=== PATIENT | male | born 1945 | race Caucasian/White ===

== ENCOUNTER → 2023-11-30 09:59 | Outpatient (REF) | payer MEDICARE, OTHER, SELFPAY ==
[2023-11-30 11:20] LABS: IgA 183 mg/dl (70-400)
[2023-11-30 11:43] LABS: TSH Reflex To Free T4 1.92 uIU/ml (0.47-4.68)
[2023-12-02 00:59] LABS: tTG IgA Antibody <1.02 FLU (0.00-4.99)
== END ==
LOC: REG 09:59
PROVIDERS: ATTENDING PHYSICIAN Internal Medicine Gastroenterology; FAMILY PHYSICIAN Internal Medicine
DX: R19.7 Diarrhea, unspecified (principal)
CPT/HCPCS: 36415; 82784; 84443; 86364

== ENCOUNTER → 2023-12-06 08:29 | Outpatient (REF) | payer MEDICARE, OTHER, SELFPAY ==
[2023-12-10 08:59] LABS: Calprotectin, Fecal 7 ug/g (<=49)
== END ==
LOC: REG 08:29
PROVIDERS: ATTENDING PHYSICIAN Internal Medicine Gastroenterology; FAMILY PHYSICIAN Internal Medicine
DX: R19.7 Diarrhea, unspecified (principal)
CPT/HCPCS: 83993; 87328; 87329

== ENCOUNTER → 2024-01-02 06:27 | Day surgery (SDC) | payer MEDICARE, OTHER, SELFPAY | LOC: GI 06:27 | PROVIDERS: ATTENDING PHYSICIAN Internal Medicine Gastroenterology | DX: Z12.11 Encounter for screening for malignant neoplasm of colon (principal); K57.30 Diverticulosis of large intestine without perforation or abscess without bleeding; K64.0 First degree hemorrhoids; D12.0 Benign neoplasm of cecum; D12.3 Benign neoplasm of transverse colon; D12.5 Benign neoplasm of sigmoid colon | CPT/HCPCS: 45385; 45380; 88305 ==

== ENCOUNTER → 2024-01-08 07:22 | Outpatient (REF) | payer MEDICARE, OTHER, SELFPAY ==
[2024-01-08 07:47] LABS: Ionized Calcium 1.23 mMOL/L (1.15-1.33)
[2024-01-08 08:13] LABS: ALT (SGPT) 46 U/L (0-50); AST (SGOT) 47 U/L (17-59); Albumin 3.8 g/dl (3.5-5.0); Alkaline Phosphatase 92 U/L (38-126); Blood Urea Nitrogen 20 mg/dl (9-20); Calcium 9.7 mg/dl (8.4-10.2); Carbon Dioxide 26 mmol/L (22-30); Chloride 105 mmol/L (98-107); Glucose 104 mg/dl (70-99); Potassium 3.8 mmol/L (3.5-5.1); Sodium 138 mmol/L (135-145); Total Bilirubin 1.3 mg/dl (0.2-1.3); Total Protein 6.2 g/dl (6.3-8.2); eGFR > 60.00
[2024-01-09 09:07] LABS: Intact PTH 59.7 pg/ml (13.6-85.8)
== END ==
LOC: REG 07:22
PROVIDERS: ATTENDING PHYSICIAN Internal Medicine Endocrinology, Diabetes & Metabolism; FAMILY PHYSICIAN Internal Medicine
DX: M81.0 Age-related osteoporosis without current pathological fracture (principal); E34.9 Endocrine disorder, unspecified; M79.10 Myalgia, unspecified site
CPT/HCPCS: 36415; 80053; 82330; 83970

== ENCOUNTER → 2024-02-29 07:13 | Outpatient (REF) | payer MEDICARE, OTHER, SELFPAY ==
[2024-02-29 08:58] LABS: HDL Cholesterol 34 mg/dl; LDL Cholesterol, Calculated 53 mg/dl; Total Cholesterol 130 mg/dl (50-199); Triglyceride 219 mg/dl (10-149); Very Low Density Lipoprotein 43 mg/dl (0-30)
[2024-02-29 14:52] LABS: PSA, Total - Diagnostic < 0.06 ng/ml (0.0-4.0)
== END ==
LOC: RAD 07:13
PROVIDERS: ATTENDING PHYSICIAN Internal Medicine
DX: E78.00 Pure hypercholesterolemia, unspecified (principal); I10 Essential (primary) hypertension; Z85.46 Personal history of malignant neoplasm of prostate; M51.36 Other intervertebral disc degeneration, lumbar region; N25.81 Secondary hyperparathyroidism of renal origin; Z00.00 Encounter for general adult medical examination without abnormal findings
CPT/HCPCS: 36415; 80061; 84153

== ENCOUNTER → 2024-08-20 07:04 | Outpatient (REF) | payer MEDICARE, OTHER, SELFPAY ==
[2024-08-20 07:33] LABS: Ionized Calcium 1.26 mMOL/L (1.15-1.33)
[2024-08-20 08:18] LABS: ALT (SGPT) 46 U/L (0-50); AST (SGOT) 40 U/L (17-59); Albumin 4.1 g/dl (3.5-5.0); Alkaline Phosphatase 91 U/L (38-126); Blood Urea Nitrogen 21 mg/dl (9-20); Calcium 9.9 mg/dl (8.4-10.2); Carbon Dioxide 27 mmol/L (22-30); Chloride 107 mmol/L (98-107); Glucose 114 mg/dl (70-99); Potassium 4.4 mmol/L (3.5-5.1); Sodium 144 mmol/L (135-145); Total Bilirubin 1.1 mg/dl (0.2-1.3); Total Protein 6.4 g/dl (6.3-8.2); eGFR > 60.00
[2024-08-21 12:05] LABS: Intact PTH 98.5 pg/ml (13.6-85.8)
== END ==
LOC: REG 07:04
PROVIDERS: ATTENDING PHYSICIAN Internal Medicine Endocrinology, Diabetes & Metabolism; FAMILY PHYSICIAN Internal Medicine
DX: M81.0 Age-related osteoporosis without current pathological fracture (principal); E34.9 Endocrine disorder, unspecified; M79.10 Myalgia, unspecified site
CPT/HCPCS: 36415; 80053; 82330; 83970

== ENCOUNTER → 2024-08-26 08:28 | Outpatient (REF) | payer MEDICARE, OTHER, SELFPAY | LOC: RAD 08:28 | PROVIDERS: ATTENDING PHYSICIAN Internal Medicine Endocrinology, Diabetes & Metabolism; FAMILY PHYSICIAN Internal Medicine | DX: M81.0 Age-related osteoporosis without current pathological fracture (principal); E34.9 Endocrine disorder, unspecified | CPT/HCPCS: 78071; A9500 ==

== ENCOUNTER → 2024-09-12 08:11 | Outpatient (REF) | payer MEDICARE, OTHER, SELFPAY | LOC: RAD 08:11 | PROVIDERS: ATTENDING PHYSICIAN Internal Medicine Endocrinology, Diabetes & Metabolism; FAMILY PHYSICIAN Internal Medicine | DX: M81.0 Age-related osteoporosis without current pathological fracture (principal); E34.9 Endocrine disorder, unspecified | CPT/HCPCS: 76536 ==

== ENCOUNTER → 2025-02-04 07:07 | Outpatient (REF) | payer MEDICARE, OTHER, SELFPAY ==
[2025-02-04 08:14] LABS: Urine Albumin 2+ (Neg - Trace); Urine Bilirubin Negative (Negative); Urine Character Clear (Clear); Urine Color Yellow; Urine Glucose Negative (Negative); Urine Ketone Negative (Negative); Urine Leukocyte 1+ (Negative); Urine Nitrite Negative (Negative); Urine Occult Blood Negative (Negative); Urine Urobilinogen 1+ (Neg - 1+)
[2025-02-04 08:18] LABS: % Basophils 0.7 % (0-2); % Eosinophils 3.2 % (0-6); % Immature Granulocytes 0.8 % (0-0.5); % Lymphocytes 20.2 % (20.5-51.1); % Monocytes 9.3 % (1.7-9.3); % Neutrophils 65.8 % (42.2-75.2); Absolute Basophils 0.1 10^3/uL (0-0.2); Absolute Eosinophils 0.3 10^3/uL (0-0.7); Absolute Immature Granulocytes 0.1 10^3/uL (0-0.05); Absolute Lymphocytes 1.8 10^3/uL (1.2-3.4); Absolute Monocytes 0.8 10^3/uL (0.1-0.6); Absolute Neutrophils 5.9 10^3/uL (1.4-6.5); Hematocrit 47.9 % (39.0-52.0); Hemoglobin 16.3 g/dL (13.0-18.0); Mean Corpuscular Hgb 35.2 pg (27.0-31.0); Mean Corpuscular Volume 103.5 fL (80.0-94.0); Mean Platelet Volume 11.7 fL (7.4-10.4); Nucleated Red Blood Cells % 0 % (-); Platelet Count 156 10^3/uL (130-400); Red Blood Cell Count 4.63 10^6/uL (4.70-6.10); Red Cell Dist. Width 13.7 % (11.5-14.5)
[2025-02-04 08:26] LABS: Urine Bacteria Few (Negative); Urine Red Blood Cell 0-2 /HPF (0-2)
[2025-02-04 09:01] LABS: ALT (SGPT) 39 U/L (0-50); AST (SGOT) 36 U/L (17-59); Albumin 4.2 g/dl (3.5-5.0); Alkaline Phosphatase 82 U/L (38-126); Blood Urea Nitrogen 22 mg/dl (9-20); Calcium 10.2 mg/dl (8.4-10.2); Carbon Dioxide 26 mmol/L (22-30); Chloride 108 mmol/L (98-107); Glucose 109 mg/dl (70-99); HDL Cholesterol 33 mg/dl; LDL Cholesterol, Calculated 43 mg/dl; Potassium 4.4 mmol/L (3.5-5.1); Sodium 144 mmol/L (135-145); Total Bilirubin 1.2 mg/dl (0.2-1.3); Total Cholesterol 115 mg/dl (50-199); Total Protein 6.3 g/dl (6.3-8.2); Triglyceride 196 mg/dl (10-149); Very Low Density Lipoprotein 39 mg/dl (0-30); eGFR > 60.00
[2025-02-04 10:21] LABS: PSA, Total - Diagnostic < 0.06 ng/ml (0.0-4.0)
== END ==
LOC: REG 07:07
PROVIDERS: ATTENDING PHYSICIAN Internal Medicine
DX: E78.00 Pure hypercholesterolemia, unspecified (principal); I10 Essential (primary) hypertension; E21.3 Hyperparathyroidism, unspecified; M51.362 Other intervertebral disc degeneration, lumbar region with discogenic back pain and lower extremity pain; M81.8 Other osteoporosis without current pathological fracture; Z85.46 Personal history of malignant neoplasm of prostate; Z87.39 Personal history of other diseases of the musculoskeletal system and connective tissue; Z00.00 Encounter for general adult medical examination without abnormal findings
CPT/HCPCS: 36415; 80053; 80061; 81003; 81015; 84153; 84443; 85025

== ENCOUNTER → 2025-02-13 07:04 | Outpatient (REF) | payer MEDICARE, OTHER, SELFPAY ==
[2025-02-13 07:47] LABS: % Basophils 0.8 % (0-2); % Eosinophils 3.4 % (0-6); % Immature Granulocytes 0.6 % (0-0.5); % Lymphocytes 21.1 % (20.5-51.1); % Monocytes 9.5 % (1.7-9.3); % Neutrophils 64.6 % (42.2-75.2); Absolute Basophils 0.1 10^3/uL (0-0.2); Absolute Eosinophils 0.4 10^3/uL (0-0.7); Absolute Immature Granulocytes 0.1 10^3/uL (0-0.05); Absolute Lymphocytes 2.2 10^3/uL (1.2-3.4); Absolute Neutrophils 6.8 10^3/uL (1.4-6.5); Hematocrit 49.5 % (39.0-52.0); Hemoglobin 16.9 g/dL (13.0-18.0); Mean Corp Hgb Conc. 34.1 g/dL (33.0-37.0); Mean Corpuscular Hgb 34.7 pg (27.0-31.0); Mean Corpuscular Volume 101.6 fL (80.0-94.0); Mean Platelet Volume 11.1 fL (7.4-10.4); Nucleated Red Blood Cells % 0 % (-); Platelet Count 170 10^3/uL (130-400); Red Blood Cell Count 4.87 10^6/uL (4.70-6.10); Red Cell Dist. Width 13.5 % (11.5-14.5); Reticulocyte Count 1.3 % (0.4-2.8); White Blood Cell Count 10.4 10^3/uL (4.8-10.8)
[2025-02-13 07:57] LABS: Urine Albumin 1+ (Neg - Trace); Urine Bilirubin Negative (Negative); Urine Character Clear (Clear); Urine Color Yellow; Urine Glucose Negative (Negative); Urine Ketone Negative (Negative); Urine Leukocyte Negative (Negative); Urine Nitrite Negative (Negative); Urine Occult Blood Negative (Negative); Urine Urobilinogen Negative (Neg - 1+)
[2025-02-13 08:18] LABS: Urine Red Blood Cell 0-2 /HPF (0-2); Urine Squamous Cell 16-20 /LPF (Few); Urine White Cell 0-2 /HPF (0-5)
[2025-02-13 08:19] LABS: Urine Bacteria Few (Negative)
== END ==
LOC: REG 07:04
PROVIDERS: ATTENDING PHYSICIAN Internal Medicine
DX: R80.9 Proteinuria, unspecified (principal); D75.89 Other specified diseases of blood and blood-forming organs
CPT/HCPCS: 36415; 81003; 81015; 85025; 85045

== ENCOUNTER → 2025-03-19 06:43 | Outpatient (REF) | payer MEDICARE, OTHER, SELFPAY ==
[2025-03-19 08:19] LABS: Urine Protein < 5 mg/dl (0-12)
[2025-03-19 08:24] LABS: 24 Hour Urine Total Volume 1000 ml
== END ==
LOC: REG 06:43
PROVIDERS: ATTENDING PHYSICIAN Internal Medicine
DX: R80.9 Proteinuria, unspecified (principal)
CPT/HCPCS: 81050; 84156

== ENCOUNTER 2025-04-24 23:13 | Observation (INO) | payer MEDICARE, OTHER, SELFPAY ==
[2025-04-24 19:37] VITALS: BP 168/76; BMI 28.9
[2025-04-24 19:53] LABS: % Basophils 0.6 % (0-2); % Eosinophils 2.7 % (0-6); % Immature Granulocytes 0.9 % (0-0.5); % Lymphocytes 15.1 % (20.5-51.1); % Monocytes 8.6 % (1.7-9.3); % Neutrophils 72.1 % (42.2-75.2); Absolute Basophils 0.1 10^3/uL (0-0.2); Absolute Eosinophils 0.3 10^3/uL (0-0.7); Absolute Immature Granulocytes 0.1 10^3/uL (0-0.05); Absolute Lymphocytes 1.9 10^3/uL (1.2-3.4); Absolute Monocytes 1.1 10^3/uL (0.1-0.6); Hemoglobin 15.5 g/dL (13.0-18.0); Mean Corp Hgb Conc. 35.2 g/dL (33.0-37.0); Mean Corpuscular Hgb 35.4 pg (27.0-31.0); Mean Corpuscular Volume 100.5 fL (80.0-94.0); Mean Platelet Volume 11.3 fL (7.4-10.4); Nucleated Red Blood Cells % 0 % (-); Platelet Count 191 10^3/uL (130-400); Red Blood Cell Count 4.38 10^6/uL (4.70-6.10); Red Cell Dist. Width 13.7 % (11.5-14.5); White Blood Cell Count 12.5 10^3/uL (4.8-10.8)
[2025-04-24 20:00] VITALS: BP 142/60
[2025-04-24 20:16] LABS: ALT (SGPT) 25 U/L (0-50); AST (SGOT) 28 U/L (17-59); Albumin 4.1 g/dl (3.5-5.0); Alkaline Phosphatase 72 U/L (38-126); Blood Urea Nitrogen 22 mg/dl (9-20); Carbon Dioxide 24 mmol/L (22-30); Chloride 107 mmol/L (98-107); Estimated Creatinine Clearance 55 ml/min; Glucose 160 mg/dl (70-99); Potassium 4.5 mmol/L (3.5-5.1); Sodium 139 mmol/L (135-145); Total Bilirubin 0.8 mg/dl (0.2-1.3); Total Protein 6.4 g/dl (6.3-8.2); eGFR > 60.00
--- NOTE | 2025-04-24 20:32 | ED.GENMED ---
History of Present Illness
<Christa Ridley PA-C - Last Filed: 04/25/25 02:26>
General
Chief Complaint: Fainting Sensation
Source: patient
Exam Limitations: none
Time Seen by Provider: 04/24/25 20:31
History of Present Illness
History of Present Illness:
79yoM with a history of hypertension and hyperlipidemia presenting via EMS for evaluation of a near syncopal episode. Patient was eating dinner this evening when he suddenly became lightheaded and diaphoretic. He had the sudden urge to get up and
leave. He ambulated to the next table when he fell. caught him and states that his eyes were open but he was not responding for a few seconds. Patient denies any preceding chest pain, shortness of breath, or palpitations. He denies any
dizziness currently but feels fatigued. Prehospital EKG showed a left bundle branch block. Patient denies any history of this and believes his last EKG was about 2 years ago. He has never seen a labor economics teacher before.
Past History
<Christa Ridley PA-C - Last Filed: 04/25/25 02:26>
Past History
ED Past Medical History: HTN
ED Past Surgical History: Orthopedic (Right ankle replacement), Tonsilectomy, Urological and Other (Sinus surgery, prostatectomy)
Social History
Personal:
Living: with family
Employment: Retired
Phy Exam
<Christa Ridley PA-C - Last Filed: 04/25/25 02:26>
General Physical Exam
General Presentation: well appearing and no apparent distress
General Skin: warm and dry
General Habitus: normal
General Mental: alert
General Hydration: appears well hydrated
ENT Exam
ENT Exam: normocephalic
Cardiovascular Exam
Cardiovascular Exam: regular rate/rhythm, no edema and no murmur
Pulmonary Exam
Pulmonary Exam: lungs clear, no respiratory distress, no rales, no crackles, no rhonchi and no wheezing
Neurological Exam
Neurological Exam: alert
[place] Coma Scale
Eye Opening: Spontaneous
Verbal Response: Oriented
Motor Response: Obeys Commands
GCS Total Score: 15
Skin Exam
Skin Exam: normal color and warm/dry
Psychiatric Exam
Psychiatric Exam: normal mood/affect
<Hernan Velazquez MD - Last Filed: 04/24/25 22:42>
[place] Coma Scale
GCS Total Score: 15
Course
<Christa Ridley PA-C - Last Filed: 04/25/25 02:26>
Orders/Labs/Results
Orders:
Orders
04/24/25 19:40
EKG [Electrocardiogram (*1)] Urgent
Reason for Study: Tachycardia
EKG- Treatment ONCE
04/24/25 19:43
Complete Blood Count/With Diff Urgent
Comprehensive Metabolic Panel Urgent
04/24/25 20:45
Troponin I Urgent
04/24/25 22:00
Flush (0.9% Sodium Chloride) [Flush (Nss)] See Dose Instructions IV PER PROTOCOL
04/24/25 22:36
CT Head W/o Iv Contrast Urgent
Comment:
Reason For Exam: syncope hx cva's
04/24/25 22:42
Admit/Transfer Patient As Directed
Co-Sign Provider:
Level of Care: Observation services
Assign to:: Telemetry
Physician / Group: angie maurice
Diagnosis: syncope unclear, new lbbb,r facial droop poss cva/tia
Reason for Telemetry: CVA/TIA
Date to Stop Telemetry: 04/27/25
Time to Stop Telemetry: 11:00
Reason for Hospitalization: syncope unclear, new lbbb,r facial droop poss cva/tia
Code Status As Directed
Resuscitation Status: Full Code
04/24/25 22:46
PRN Pain Medication Management As Directed
May give lesser potent ordered pain med per pt: Yes
preference::
Protocol:: Medication orders for pain may be administered in a
manner that supports deferring to patient preference
when the pt is:
- Requesting an ordered lesser potent pain medication.
Least to most potent pain medications are defined
as: acetaminophen < NSAID < tramadol < opioids
(morphine, oxycodone, hydromorphone).
- Requesting a lesser dose of the same medication IF
ORDERED.
- Requesting a less intrusive route of administration
if both routes are prescribed by the provider (PO <
IV).
04/24/25 22:51
Consult Cardiology [CARDIOLOGY CONSULT] Routine
Consulting Provider: Rojelio Espinoza
Was physician already notified: No
Reason for consult: lbbb, syncope 1st degree heart block
Consult Neurology [NEUROLOGY CONSULT] Routine
Consulting Provider: Fredis Palma
Was physician already notified: No
Reason for consult: right facial droop dizziness syncope hx cva's
04/24/25 22:52
Consult Notification Routine
Specialty to Notify: Cardiology
Consult Notification Routine
Specialty to Notify: Neurology
04/25/25 00:12
Acetaminophen [Tylenol] 650 mg PO Q4HPRN PRN
04/25/25 00:12
Activity As Directed
Activity Level: As Tolerated
Neurological Checks As Directed
Frequency: q4h
Orthostatic Vital Signs As Directed
Orthostatic VS Frequency: BID
Pneumatic Compression Sleeves As Directed
Type: Knee high
Vital Signs As Directed
Frequency: Per unit guidelines
Pt Eval And Treat Routine
Activity Level: As Tolerated
Speech Therapy Eval & Treat Routine
DX Deep Vein Thrombosis Video Routine
04/25/25 06:00
Cardiovascular Evaluation IN AM
Complete Blood Count/With Diff IN AM
Comprehensive Metabolic Panel IN AM
Magnesium IN AM
MRI Brain [MR Brain Without Contrast] IN AM
Comment:
Reason For Exam: cva tia
OK for patient to be off Cardiac Monitoring for MRI: Yes
Recent pill cam endoscopy?: No
Pacemaker/Defibrillator?: No
Carotid US [US Cerebrovascular] IN AM
Comment:
Reason For Exam: cva tia
04/25/25 08:00
Allopurinol [Zyloprim] 300 mg PO DAILY
Atorvastatin [Lipitor] 20 mg PO DAILY
Clopidogrel Bisulfate [Plavix] 75 mg PO DAILY
Lisinopril [Zestril] 20 mg PO BID
Metoprolol [Lopressor] 100 mg PO DAILY
04/25/25 Dinner
Cholesterol Lowering
Cholesterol Lowering: Sodium, 2 Gram
04/25/25 18:00
Multivitamin [Theragran] 1 tablet PO QPM
omega 5-vsk-vdq-fish oil [Fish Oil] 2 cap PO QPM
04/27/25 11:00
DC Protocol for Telemetry ONCE
Abnormal Lab Results
04/24/25
19:43
WBC 12.5 H 10^3/uL
(4.8-10.8)
RBC 4.38 L 10^6/uL
(4.70-6.10)
MCV 100.5 H fL
(80.0-94.0)
MCH 35.4 H pg
(27.0-31.0)
MPV 11.3 H fL
(7.4-10.4)
Abs Immat Gran (auto) 0.1 H 10^3/uL
(0-0.05)
Absolute Neuts (auto) 9.0 H 10^3/uL
(1.4-6.5)
Absolute Monos (auto) 1.1 H 10^3/uL
(0.1-0.6)
Immature Gran % 0.9 H %
(0-0.5)
Lymphocytes % 15.1 L %
(20.5-51.1)
BUN 22 H mg/dl
(9-20)
Glucose 160 H mg/dl
(70-99)
04/24/25 19:43
04/24/25 19:43
Vital Signs
Initial and Last Documented VS:
Initial Vital Signs
Temp Pulse Resp BP Pulse Ox
97.9 F 68 15 168/76 100
04/24/25 19:37 04/24/25 19:37 04/24/25 19:37 04/24/25 19:37 04/24/25 19:37
Last Documented Vital Signs
Temp Pulse Resp BP Pulse Ox
98.3 F 62 18 112/68 96
04/25/25 00:21 04/25/25 00:21 04/25/25 00:21 04/25/25 00:21 04/25/25 00:21
<Hernan Velazquez MD - Last Filed: 04/24/25 22:42>
Orders/Labs/Results
Orders:
Orders
04/24/25 19:40
EKG [Electrocardiogram (*1)] Urgent
Reason for Study: Tachycardia
EKG- Treatment ONCE
04/24/25 19:43
Complete Blood Count/With Diff Urgent
Comprehensive Metabolic Panel Urgent
04/24/25 20:45
Troponin I Urgent
04/24/25 22:00
Flush (0.9% Sodium Chloride) [Flush (Nss)] See Dose Instructions IV PER PROTOCOL
04/24/25 22:36
CT Head W/o Iv Contrast Urgent
Comment:
Reason For Exam: syncope hx cva's
04/24/25 22:42
Admit/Transfer Patient As Directed
Co-Sign Provider:
Level of Care: Observation services
Assign to:: Telemetry
Physician / Group: angie maurice
Diagnosis: syncope unclear, new lbbb,r facial droop poss cva/tia
Reason for Telemetry: CVA/TIA
Date to Stop Telemetry: 04/27/25
Time to Stop Telemetry: 11:00
Reason for Hospitalization: syncope unclear, new lbbb,r facial droop poss cva/tia
Code Status As Directed
Resuscitation Status: Full Code
04/24/25 22:46
PRN Pain Medication Management As Directed
May give lesser potent ordered pain med per pt: Yes
preference::
Protocol:: Medication orders for pain may be administered in a
manner that supports deferring to patient preference
when the pt is:
- Requesting an ordered lesser potent pain medication.
Least to most potent pain medications are defined
as: acetaminophen < NSAID < tramadol < opioids
(morphine, oxycodone, hydromorphone).
- Requesting a lesser dose of the same medication IF
ORDERED.
- Requesting a less intrusive route of administration
if both routes are prescribed by the provider (PO <
IV).
04/24/25 22:51
Consult Cardiology [CARDIOLOGY CONSULT] Routine
Consulting Provider: Rojelio Espinoza
Was physician already notified: No
Reason for consult: lbbb, syncope 1st degree heart block
Consult Neurology [NEUROLOGY CONSULT] Routine
Consulting Provider: Fredis Palma
Was physician already notified: No
Reason for consult: right facial droop dizziness syncope hx cva's
04/24/25 22:52
Consult Notification Routine
Specialty to Notify: Cardiology
Consult Notification Routine
Specialty to Notify: Neurology
04/25/25 00:12
Acetaminophen [Tylenol] 650 mg PO Q4HPRN PRN
04/25/25 00:12
Activity As Directed
Activity Level: As Tolerated
Neurological Checks As Directed
Frequency: q4h
Orthostatic Vital Signs As Directed
Orthostatic VS Frequency: BID
Pneumatic Compression Sleeves As Directed
Type: Knee high
Vital Signs As Directed
Frequency: Per unit guidelines
Pt Eval And Treat Routine
Activity Level: As Tolerated
Speech Therapy Eval & Treat Routine
DX Deep Vein Thrombosis Video Routine
04/25/25 06:00
Cardiovascular Evaluation IN AM
Complete Blood Count/With Diff IN AM
Comprehensive Metabolic Panel IN AM
Magnesium IN AM
MRI Brain [MR Brain Without Contrast] IN AM
Comment:
Reason For Exam: cva tia
OK for patient to be off Cardiac Monitoring for MRI: Yes
Recent pill cam endoscopy?: No
Pacemaker/Defibrillator?: No
Carotid US [US Cerebrovascular] IN AM
Comment:
Reason For Exam: cva tia
04/25/25 08:00
Allopurinol [Zyloprim] 300 mg PO DAILY
Atorvastatin [Lipitor] 20 mg PO DAILY
Clopidogrel Bisulfate [Plavix] 75 mg PO DAILY
Lisinopril [Zestril] 20 mg PO BID
Metoprolol [Lopressor] 100 mg PO DAILY
04/25/25 Dinner
Cholesterol Lowering
Cholesterol Lowering: Sodium, 2 Gram
04/25/25 18:00
Multivitamin [Theragran] 1 tablet PO QPM
omega 6-dup-vsm-fish oil [Fish Oil] 2 cap PO QPM
04/27/25 11:00
DC Protocol for Telemetry ONCE
Abnormal Lab Results
04/24/25
19:43
WBC 12.5 H 10^3/uL
(4.8-10.8)
RBC 4.38 L 10^6/uL
(4.70-6.10)
MCV 100.5 H fL
(80.0-94.0)
MCH 35.4 H pg
(27.0-31.0)
MPV 11.3 H fL
(7.4-10.4)
Abs Immat Gran (auto) 0.1 H 10^3/uL
(0-0.05)
Absolute Neuts (auto) 9.0 H 10^3/uL
(1.4-6.5)
Absolute Monos (auto) 1.1 H 10^3/uL
(0.1-0.6)
Immature Gran % 0.9 H %
(0-0.5)
Lymphocytes % 15.1 L %
(20.5-51.1)
BUN 22 H mg/dl
(9-20)
Glucose 160 H mg/dl
(70-99)
04/24/25 19:43
04/24/25 19:43
Vital Signs
Initial and Last Documented VS:
Initial Vital Signs
Temp Pulse Resp BP Pulse Ox
97.9 F 68 15 168/76 100
04/24/25 19:37 04/24/25 19:37 04/24/25 19:37 04/24/25 19:37 04/24/25 19:37
Last Documented Vital Signs
Temp Pulse Resp BP Pulse Ox
98.3 F 62 18 112/68 96
04/25/25 00:21 04/25/25 00:21 04/25/25 00:21 04/25/25 00:21 04/25/25 00:21
Faisallt;Christa Ridley PA-C - Last Filed: 04/25/25 02:26>
MDM/Problems Addressed
Differential Diagnosis Includes:
79yoM here after a near syncopal episode. Eating dinner this evening when suddenly became dizzy and diaphoretic. Stood up and fell. Unresponsive for a few seconds. Symptoms now mostly resolved. No CP/SOB/palpitations. He is hypertensive with
otherwise stable vital signs. He is resting comfortably in no distress. Differential diagnosis includes but is not limited to: Arrhythmia, ACS, orthostatic hypotension, dehydration, hypoglycemia
Initial ED plan: Check cardiac labs and EKG.
<Christa Ridley PA-C - Last Filed: 04/25/25 02:26>
*Pulse Oximetry
SaO2: 100
Oxygen Mode of Delivery: Room air
Patient hypoxic: no (100)
*EKG
Interpreted by ED Provider?: Yes
EKG Intrepretation Date: 04/24/25
Heart Rate: 67
Rate: normal
Rhythm: sinus and PVC's
[place]: left axis deviation
QRS Pattern: left bundle branch block
Ischemia: no ischemia
*Critical Care Note
Total Time (30-74mins, 75-104mins- exclusive of procedures): Not Applicable
<Christa Ridley PA-C - Last Filed: 04/25/25 02:26>
Update Note
Update Note:
EKG shows a left bundle branch block which appears to be new. Troponin within normal limits. Remainder of labs overall unremarkable. Unclear etiology of near syncope. Given new LBBB, will admit for further evaluation.
ED Attending Note
<Christa Ridley PA-C - Last Filed: 04/25/25 02:26>
-
Portions of this chart may have been created with voice recognition software.� Occasional wrong word or��sound alike� substitutions may have occurred due to the inherent limitations of voice recognition software.
<Hernan Velazquez MD - Last Filed: 04/24/25 22:42>
ED Attending Note
Patient seen and examined by attending physician: Yes
I performed the substantive portion of visit, reviewed & personally made and approve the management plan that is documented in note by myself or CONNIE.: Yes
ED Attending Note:
I have seen and evaluated the patient with a [id number] encounter. I have spoken to the [CONNIE] and involved in the medical history, the physical exam, medical decision making.
Evaluation and management service: agree unless noted differently below.
Results interpretation: agree unless noted differently below.
71-year-old male history of hypertension, hyperlipidemia presenting to the emergency department after a syncopal event. Patient was at dinner eating after he was sweating for quite some time. He became dizzy and diaphoretic. He felt something was
wrong so he got up when he became pale and passed out. The found him to the ground. He denies any prodrome including vision changes blurry vision chest pain palpitations. Has never happened to him before. He did drink a lot of water today.
No numbness tingling or weakness during this event. During my evaluation patient is resting comfortably. He does not have any neurodeficits. His lungs are clear and his heart is regular rate and rhythm. EKG per my interpretation with new left
bundle branch block. Given the syncope with an unclear etiology as her was no trigger as well as the new left bundle we will admit patient in for further evaluation and monitoring and possible stroke workup.
Discharge Plan
Departure
Patient Disposition: Admit
Date of Disposition: 04/24/25
Time of Disposition: 21:48
Presentation/result/management discussed w/ accepting MD/DO: Hospitalist
Discharge Problem:
Near syncope, Left bundle branch block (LBBB)
Interventions
Interventions:
*Risk Screen - Suicide Last Done: 04/25/25 00:18
*General Assessment Last Done: 04/24/25 19:37
*Neglect/Abuse Screening Last Done: 04/24/25 19:37
*ED- Fall Risk Assessment Last Done: 04/24/25 19:37
*ED COVID-19 Vaccine History Last Done: 04/24/25 19:37
*Nursing Disposition Last Done: 04/25/25 00:06
ED- Cardiac Assessment Last Done: 04/24/25 21:45
ED- Neurological Assessment Last Done: 04/24/25 21:45
Discharge Date and Time
Discharge Date/Time: 04/25/25 00:06
[2025-04-24 21:00] VITALS: BP 155/73
[2025-04-24 21:20] LABS: Troponin I < 0.012 ng/ml
--- NOTE | 2025-04-24 22:07 | HPS.HSE ---
Family Physician
-
Family Physician: NOT KNOW UNKNOWN - PT DOES
Chief Complaint
-
Lightheadedness spinning sensation, diaphoresis and syncope
History of Present Illness
79-year-old male who was reportedly eating dinner out when he suddenly became lightheaded with a spinning sensation and diaphoretic and had brief syncope. He reports he was approximately correction through his meal and eating fish and chips he did not
have any allergy or rash. He told his he wanted to leave he then stood up walked a couple feet and held onto a bar height table saw, where he started to pass out his and another bystander helped him down to the ground she states his eyes
were open and then closed on the floor she was slapping him in the face to try to wake up. The patient remembers feeling he was going to pass out however he does not remember his slapping him in the face. He reports when he woke up his
symptoms had resolved. He denies any prodrome of headache, blurred vision, chest pain, palpitations, shortness of breath. He denies fever, chills, sore throat, abdominal pain, nausea, vomiting, diarrhea, urinary symptoms. He has history of prior
strokes with last 1 being in 2016 where he had word jargon that lasted 1 week. He currently has right eyelid ptosis with subtle right nasolabial fold flattening subtle right corner mouth droop unclear if old or new per and patient. He was on
aspirin prior to his stroke in 2016 however it was discovered he had multiple cerebellar and cerebral hemispheric strokes he was taken off aspirin and placed on lifelong Plavix. He reports only having coffee this morning and then a gin and tonic
with dinner. En route to the ER he was noted to have a left bundle branch block with no recall of prior issue. He has past medical history of hypertension, hyperlipidemia prostate cancer status post prostatectomy 2004, gout, multiple lacunar
infarcts cerebellar and cerebral hemispheres CVAs 05/24/2016 on MRI, chronic osteoarthritis lower lumbar back
Medical History
Past Medical History
Past Medical History: Reports Other
Additional Past Medical History:
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
hypertension
hyperlipidemia
prostate cancer status post prostatectomy 2004
gout
Past Surgical History: Reports Other
Additional Past Surgical History:
Prostatectomy secondary to prostate cancer
Right ankle replacement
Tonsillectomy
Sinus surgery
Social History
Tobacco: Non-smoker
Alcohol: Occasional
Drug: None
Personal:
Living: With Family
Employment: Retired
Family History
Family History: Not pertinent
Allergies / Home Medications
Allergies reflects when Allergies were last updated in [facility] [employer].
Home Medications with original date entered in [facility]
Allergy/Medication List:
Allergies
Allergy/AdvReac Type Severity Reaction Status Date / Time
No Known Allergies Allergy Verified 04/24/25 19:42
Home Medications
allopurinol 300 mg tablet 300 mg PO DAILY 12/05/20
atorvastatin 20 mg tablet 20 mg PO DAILY 12/05/20
clopidogrel 75 mg tablet 75 mg PO DAILY 12/05/20
metoprolol tartrate 100 mg tablet 100 mg PO DAILY 12/05/20
alendronate 70 mg tablet 70 mg PO MO@0800 04/24/25
hydrochlorothiazide 12.5 mg tablet 12.5 mg PO DAILY 04/24/25
lisinopril 40 mg tablet 20 mg PO BID 04/24/25
omega 6-nrk-kor-fish oil 1,200 mg (144 mg-216 mg) capsule (Fish Oil) 2 cap PO QPM 04/24/25
therapeutic multivitamin 1 tab PO QPM 04/24/25
Review of Systems
-
History Source: Patient and Family ( at bedside)
A 12 point ROS was completed and negative except as noted: Yes
Constitutional: Denies Fever, Weight Loss or Fatigue
EENT: Reports Other (Right eyelid ptosis subtle right nasolabial fold flattening, subtle right corner mouth droop unclear if old or new); Denies Sore Throat, Mouth Swelling or Runny Nose
Respiratory: Denies Cough or Trouble Breathing
Cardiac: Reports Diaphoresis and Syncope; Denies Chest Pain or Palpitations
Abdomen/GI: Denies Abdominal Pain, Nausea, Vomiting, Diarrhea, Constipated, Bloody Stools or Black Stools
: Denies Dysuria, Frequency, Flank Pain, Incontinence, Difficulty Voiding or Urgency
Musculoskeletal: Denies Joint Pain or Edema
Skin: Denies Itching or Rash
Neurological: Reports Dizzy; Denies Headache, Weakness or Numbness
Endocrine: Reports No Symptoms
Hematologic/Lymphatic: Reports No Symptoms
Psych: Reports Calm
Physical Exam
Vital Signs
Vital Signs
Temp Pulse Resp BP Pulse Ox
97.9 F 68 12 155/73 98
04/24/25 19:37 04/24/25 21:45 04/24/25 21:45 04/24/25 21:00 04/24/25 21:45
Physical Exam
General: Comfortable and Conversant; No Pain, Fever or Chills
HEENT: NormoCephalic, Anicteric, Moist mucous membranes, PERRLA, [place] Conjunctivae and Other (Right eyelid ptosis subtle right nasolabial fold flattening, subtle right corner mouth droop unclear if old or new)
Respiratory: Clear; No Wheezes, Rales or Rhonchi
Cardiac: S1/S2 and Regular Rhythm (Sinus rhythm with first-degree AV block); No Murmur, Rub or Gallop
Breast: Deferred by me
GI: Soft, Non Tender, Non Distended, Normal Bowel Sounds and No Hepatosplenomegaly
Rectal: Deferred by Provider
Genito-urinary: Deferred by me
Musculoskeletal: No Clubbing, No Cyanosis and No Edema
Skin: Warm and Dry; No Rash
Neuro: AO x 3, No Motor Deficits, Nonfocal/grossly intact, Cranial Nerves Intact, No Sensory Deficits and Facial Droop (Right eyelid ptosis subtle right nasolabial fold flattening, subtle right corner mouth droop unclear if old or new); No Slurred
Speech, Tremors or Sedated
Psych: Calm
Laboratory Results
-
04/24/25 19:43
04/24/25 19:43
Laboratory Results
Total Bilirubin 0.8 mg/dl (0.2-1.3) 04/24/25 19:43
AST 28 U/L (17-59) 04/24/25 19:43
ALT 25 U/L (0-50) 04/24/25 19:43
Alkaline Phosphatase 72 U/L (38-126) 04/24/25 19:43
Troponin I < 0.012 ng/ml 04/24/25 20:45
Impression/Plan
-
Impression/plan:
Observation telemetry
#Syncope unclear etiology conc orthostatic hypotension versus possible cardiac abnormality versus CVA
#New LBBB
- Consult cardiology
- Check orthostatic vitals
- 2D echo
- IV NSS 60 cc an hour x 1 L
EKG: Sinus rhythm with sinus arrhythmia and first-degree AV block 67 bpm, QTc 420 MS L BBB new compared to April 2007
#Right side lid/facial droop with acute dizziness concern for possible CVA
#History of multiple lacunar infarcts cerebellar and cerebral hemispheres CVAs last 1 occurring approximately 2015 had word jargon lasting 1 week
- Continue Plavix 75 mg daily was on prior aspirin during strokes and was stopped
- Check lipid profile
- MRI brain
- Carotid ultrasound
- 2D echo
- Consult Neurology
CT head:Evidence of multiple nonacute lacunar infarcts of the cerebellar and cerebral hemispheres. This may be due to extensive small vessel disease.
No acute restricted diffusion and no midline shift or other mass effect.
Mild age-related atrophy.
Left maxillary sinus mucous retention cyst.
#HTN�benign
BP 155/73
Continue metoprolol tartrate 100 mg daily, lisinopril 20 mg twice daily with hold parameters hold HCTZ
#HLD
Check lipid profile
Continue atorvastatin 20 mg daily, fish oil
#Gout
Allopurinol 300 mg daily
#Prostatectomy secondary to prostate cancer 2004
#Chronic osteoarthritis lower lumbar back
Patient on alendronate 70 mg Mondays
DVT prophylaxis
SCDs
Full code
[2025-04-24 22:11] VITALS: BP 161/92
--- NOTE | 2025-04-24 23:16 | W.PN.UPDATE ---
Update Note
Progress Note Update
This is an addendum to H&P written by Prema Oshea on 04/24/2025. �Patient seen and examined independently with [employer].
79-year-old male past medical history of multiple CVAs, hypertension, hyperlipidemia, gout, prostate cancer status post prostatectomy, presenting with near syncopal episode. �He was eating dinner when he became lightheaded with vertigo, diaphoretic.
�He fell and was caught by his . �Unresponsive for few seconds. �No chest pain or shortness of breath or palpitations.
Prior MRI of brain from 2016 showed cerebellar and white matter lacunar infarcts.
On exam he has right eye ptosis, and flattening of right nasolabial fold unclear duration.
EKG shows sinus rhythm with sinus arrhythmia first-degree AV block, PVCs, left bundle branch block which is reportedly new.
Labs show leukocytosis. �Troponin negative.
Patient with syncopal episode unclear etiology possibly related to new LBBB. �Rule out orthostatic hypotension and CVA versus cardiac etiology. �Check orthostatic vital signs. �Trend troponins. �Check echocardiogram.� Cardiology consulted. Check CT
head, MRI brain, carotid ultrasound.
[2025-04-24 23:24] VITALS: BP 163/79
[2025-04-25] VITALS (7 sets, daily range): BP systolic 112–183; BP diastolic 62–104; PULSE 64–73; O2SAT 99; BMI 35.2
--- NOTE | 2025-04-25 00:41 | PTCARENOTE ---
Patient arrived from ED via stretcher. Patient AAOx3, able to make needs known. Patient ambulatory from stretcher to bed.
[2025-04-25 07:15] LABS: % Basophils 0.6 % (0-2); % Eosinophils 2.2 % (0-6); % Immature Granulocytes 0.8 % (0-0.5); % Lymphocytes 13.1 % (20.5-51.1); % Monocytes 8.6 % (1.7-9.3); % Neutrophils 74.7 % (42.2-75.2); Absolute Basophils 0.1 10^3/uL (0-0.2); Absolute Eosinophils 0.3 10^3/uL (0-0.7); Absolute Immature Granulocytes 0.1 10^3/uL (0-0.05); Absolute Lymphocytes 1.5 10^3/uL (1.2-3.4); Absolute Neutrophils 8.3 10^3/uL (1.4-6.5); Hematocrit 40.2 % (39.0-52.0); Mean Corp Hgb Conc. 34.8 g/dL (33.0-37.0); Mean Corpuscular Hgb 34.9 pg (27.0-31.0); Mean Corpuscular Volume 100.2 fL (80.0-94.0); Mean Platelet Volume 11.5 fL (7.4-10.4); Nucleated Red Blood Cells % 0 % (-); Platelet Count 173 10^3/uL (130-400); Red Blood Cell Count 4.01 10^6/uL (4.70-6.10); Red Cell Dist. Width 13.5 % (11.5-14.5); White Blood Cell Count 11.1 10^3/uL (4.8-10.8)
[2025-04-25 07:44] LABS: ALT (SGPT) 29 U/L (0-50); AST (SGOT) 31 U/L (17-59); Albumin 3.6 g/dl (3.5-5.0); Alkaline Phosphatase 68 U/L (38-126); Blood Urea Nitrogen 22 mg/dl (9-20); Calcium 9.9 mg/dl (8.4-10.2); Carbon Dioxide 26 mmol/L (22-30); Chloride 108 mmol/L (98-107); Estimated Creatinine Clearance 65 ml/min; Glucose 103 mg/dl (70-99); HDL Cholesterol 27 mg/dl; LDL Cholesterol, Calculated 50 mg/dl; Magnesium 1.8 mg/dl (1.6-2.3); Potassium 4.8 mmol/L (3.5-5.1); Sodium 139 mmol/L (135-145); Total Cholesterol 98 mg/dl (50-199); Total Protein 5.7 g/dl (6.3-8.2); Triglyceride 109 mg/dl (10-149); Very Low Density Lipoprotein 21 mg/dl (0-30); eGFR > 60.00
--- NOTE | 2025-04-25 08:10 | CON.NEURO ---
Addendum entered and electronically signed by Fredis Palma MD 04/25/25 12:16:
Studies reviewed.
I have personally examined the patient. I reviewed and agree with the COUNTER SERVER's Note.
My addenda:
Awake, alert, interactive. No acute distress.
Speech intact.
Follows 2-step requests w/o difficulty. No tremor.
Extra-ocular movements grossly intact.
Facial movements full and symmetric. Hearing intact to normal conversational volume.
Normal UE movements bilaterally.
Neck: full ROM.
Chest: no dyspnea
Heart: no JVD
Ext: (-) Clubbing, (-) Cyanosis, (-) Edema
IMPRESSIONS/RECOMMENDATIONS:
Abrupt onset of syncope
No clear evidence by history that the patient had a neurological etiology to his syncope at this time
Continue clopidogrel
Check orthostatic vital signs with 3-minute intervals between each body position
Continue atorvastatin
We will follow MRI of brain and carotid ultrasound results
D/W patient
Will continue to follow pending results.
Original Note:
Documented by User: Shelley Rojas NP 04/25/25 09:50
Neuro Assessment/Plan
Assessment
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
osteoarthritis lower lumbar back who was reportedly eating dinner out on 04/24/2025 when he suddenly became lightheaded with a spinning sensation and diaphoretic and had brief syncope.
Head CT (04/24/2025): no acute intracranial abnormality noted.
Brain MRI (05/24/2016): Evidence of multiple nonacute lacunar infarcts of the cerebellar and cerebral hemispheres. This may be due to extensive small vessel disease.
Labs: Cholesterol 98, LDL 50.
Plan
Impression: Abrupt onset of dizziness, lightheadedness and diaphoresis secondary to cardiac arrhythmia vs orthostatic hypotension vs dehydration vs acute CVA although less likely given brief symptomatology
Plan:
-check MRI brain without contrast to evaluate for stroke
-check carotid ultrasound
-goal normotension and normoglycemia
-check orthostatic vital signs BID, encourage fluid intake
-agree with cardiology consult
-continue clopidogrel
-LDL 50 with goal <70, continue statin therapy
-DVT prophylaxis
-continue neurochecks and NIHSS per unit guidelines
-stroke education materials to be provided
All questions encouraged and answered, plan of care discussed with Dr. Palma and patient
Consultation
Order
Date of Consultation: 04/25/25
Requesting Provider: hospitalist
Reason for Consult: syncope
Subjective/Objective
Subjective Data
Date of Service: April 25, 2025
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
lower lumbar back who was eating dinner out on 04/24/2025 when he suddenly became dizzy, lightheaded with a spinning sensation and diaphoretic and had brief syncope. He told his he wanted to leave he then stood up walked a couple feet and held
onto a bar table, He started to pass out so his and another bystander helped him down to the ground. His eyes were open and then closed while on the floor she was slapping him in the face to try to wake up. The patient remembers feeling he was
going to pass out however he does not remember his slapping him in the face. He reports when he woke up his symptoms had resolved. He denies any prodrome of headache, blurred vision, chest pain, palpitations, shortness of breath. He denies
fever, chills, sore throat, abdominal pain, nausea, vomiting, diarrhea, urinary symptoms. He reports only having coffee this morning and then a gin and tonic with dinner. He was on aspirin prior to his stroke in 2016 however it was discovered he had
multiple cerebellar and cerebral hemispheric strokes and he was taken off aspirin and placed on lifelong clopidogrel. En route to the ER he was noted to have a left bundle branch block with no prior cardiac issues. Vital signs in ED stable. Labs
unremarkable. Not an TNK/IAT candidate, NIHSS 0. Head CT with no acute intracranial abnormality noted. Cholesterol 98, LDL 50. Currently experiencing no symptoms.
Objective Data
Vital Signs
Temp Pulse Resp BP Pulse Ox
98.2 F 64 18 136/82 98
04/25/25 03:38 04/25/25 03:38 04/25/25 03:38 04/25/25 03:48 04/25/25 03:38
Lab Results
04/25/25 06:28
04/25/25 06:28
Sodium 139 mmol/L (135-145) 04/25/25 06:28
Potassium 4.8 mmol/L (3.5-5.1) 04/25/25 06:28
BUN 22 mg/dl (9-20) H 04/25/25 06:28
Glucose 103 mg/dl (70-99) H 04/25/25 06:28
Calcium 9.9 mg/dl (8.4-10.2) 04/25/25 06:28
LDL Cholesterol, Calc 50 mg/dl 04/25/25 06:28
Patient Allergies
No Known Allergies Allergy (Verified 04/24/25 19:42)
CVA Assessment
Onset of Stroke Symptoms
Onset of symptoms known: Yes
Date of onset of symptoms: 04/24/25
Time of onset of symptoms: 20:00
Time pt last seen normal is known: Yes
Date last time pt seen normal: 04/24/25
Time last time pt seen normal: 20:00
NIH Stroke Score
Level of Consciousness: 0 - Alert
LOC Questions: 0-Answers both correctly
LOC Commands: 0-Performs both correctly
Best Horizontal Gaze: 0-Normal
Visual Stewart: 0=Normal, no visual loss
Facial Palsy: 0=Normal, symmetrical
Motor - Right Arm: 0=No drift 10 seconds
Motor - Left Arm: 0=No drift 10 seconds
Motor - Right Le-No drift 5 seconds
Motor - Left Le-No drift 5 seconds
Limb Ataxia: 0-Absent
Sensation: 0-Normal
Best Language: 0-No aphasia
Dysarthria: 0-Normal
Extinction and Inattention: 0-No abnormality
NIH Total Score:: 0
Tenecteplase Contraindications
Inclusion and Exclusion criteria reviewed: Yes
IAT Contraindications: NIHSS < 6
Modified Arcadia Score (MRS)
-
Modified Arcadia Scale (mRS): No symptoms
Score: 0
Review of Systems
-
History Source: Patient
Constitutional: No Symptoms
EENT: No Symptoms Reported
Respiratory: No Symptoms
Cardiac: Diaphoresis and Syncope
Abdomen/GI: No Symptoms
Genitourinary: No Symptoms
Musculoskeletal: No Symptoms
Skin: No Symptoms
Neuro: Dizzy
Endocrine: No Symptoms
Hematologic / Lymphatic: No Symptoms
Physical Exam
-
General: No Apparent Distress, Comfortable and Appears Stated Age
HEENT: Normocephalic and Atraumatic
Neck: Full Range of Motion
Respiratory: No Dyspnea
Cardiac: No JVD
GI: Non-distended
Skin: Unremarkable
Extremities: No Clubbing, No Cyanosis and No Edema
Psych: Intact Judgement/Insight
Extended Neurological Exam
Mood & Affect: Mood Unremarkable
Attention Span & Concentration: Awake, Alert, Interactive and No Difficulty with 2 Step Request
Memory: Unremarkable
Tremor: Hand Tremor Absent and Head Tremor Absent
Involuntary Movement: None
Speech: Quality Unremarkable, Quantity Unremarkable and Rate of Production Unremarkable
Cranial Nerve II: Left Eye: Visual Stewart Grossly Intact
Cranial Nerve II: Right Eye: Visual Stewart Grossly Intact
Cranial Nerves III, IV, : Extraocular Movement: Extraocular Movement Full in all Directions
Cranial Nerve VII: Facial Symmetry: Normal Facial Symmetry
Cranial Nerve VIII: Hearing: Unremarkable Hearing to Normal Conversational Volume
Cranial Nerve XI: Shoulder Shrug: Unremarkable
Muscle Strength, Overall: Full Throughout
Muscle Bulk & Tone: Bulk Unremarkable and Tone Unremarkable
Pronator Drift: No Drift in Upper Extremities and No Drift in Lower Extremities
Deep Tendon Reflexes: Absent (lower extremities)
Coordination: [id number] Testing Unremarkable and Reaches for Objects without Difficulty
Data Reviewed
-
CT Head: Report Reviewed and Image Reviewed
MRI Head: Report Reviewed and Image Reviewed
Carotid Ultrasound: Ordered
Labs: Report Reviewed
Lipid Profile: Report Reviewed
Reviewed with: Physician and Patient
Old Records: Summarized
Medications
-
Active Medications
Generic Name Dose Route Start Last Admin
Trade Name Freq PRN Reason Stop Dose Admin
Acetaminophen 650 mg 04/25/25 00:12
Acetaminophen 325 Mg Tablet PO 05/23/25 00:11
Q4HPRN PRN
mild pain/NAILS/temp> 100.4F
Allopurinol 300 mg 04/25/25 08:00
Allopurinol 300 Mg Tablet PO 05/23/25 07:59
DAILY LATRICE
Atorvastatin Calcium 20 mg 04/25/25 08:00
Atorvastatin (Lipitor) 20 Mg Tablet PO 05/23/25 07:59
DAILY LATRICE
Clopidogrel Bisulfate 75 mg 04/25/25 08:00
Clopidogrel 75 Mg Tablet PO 05/23/25 07:59
DAILY LATRICE
Lisinopril 20 mg 04/25/25 08:00
Lisinopril 20 Mg Tablet PO 05/23/25 07:59
BID LATRICE
Metoprolol Tartrate 100 mg 04/25/25 08:00
Metoprolol 100 Mg Regular Release Tablet PO 05/23/25 07:59
DAILY LATRICE
Multivitamins Therapeutic 1 tablet 04/25/25 18:00
Multivitamin Tablet PO 05/23/25 17:59
QPM LATRICE
Sodium Chloride 0 flush 04/24/25 22:00
Sodium Chloride 0.9% (Flush) Syringe IV 05/22/25 21:59
PER PROTOCOL LATRICE
Home Medications
�Medication �Instructions �Recorded
allopurinol 300 mg tablet 300 mg PO DAILY 12/05/20
atorvastatin 20 mg tablet 20 mg PO DAILY 12/05/20
clopidogrel 75 mg tablet 75 mg PO DAILY 12/05/20
metoprolol tartrate 100 mg tablet 100 mg PO DAILY 12/05/20
alendronate 70 mg tablet 70 mg PO MO@0800 04/24/25
hydrochlorothiazide 12.5 mg tablet 12.5 mg PO DAILY 04/24/25
lisinopril 40 mg tablet 20 mg PO BID 04/24/25
omega 8-nmv-ytx-fish oil 1,200 mg 2 cap PO QPM 04/24/25
(144 mg-216 mg) capsule (Fish Oil)
therapeutic multivitamin 1 tab PO QPM 04/24/25
Past History
Past History
ED Past Medical History: HTN
ED Past Surgical History: Orthopedic (Right ankle replacement), Tonsilectomy, Urological and Other (Sinus surgery, prostatectomy)
Family/Social History
Personal:
Living: with family
Employment: Retired

Documented by User: Fredis Palma MD 04/25/25 12:13
CVA Assessment
NIH Stroke Score
NIH Total Score:: 0
Modified Arcadia Score (MRS)
-
Score: 0
[2025-04-25] MEDS: LIPITOR 20 MG PO (09:34)
[2025-04-25] MEDS: PLAVIX 75 MG PO (09:35)
[2025-04-25] MEDS: ZESTRIL 20 MG PO (09:35)
[2025-04-25] MEDS: LOPRESSOR 100 MG PO (09:35)
[2025-04-25] MEDS: FLUSH (NSS) 1 FLUSH IV (09:35)
[2025-04-25] MEDS: ZYLOPRIM 300 MG PO (09:35)
--- NOTE | 2025-04-25 09:35 | CON.CAR ---
Addendum entered and electronically signed by Peng Woo MD 04/25/25 10:42:
79 yo male with PMH of CVA, HTN, hyperlipidemia is admitted with syncope. He felt dizzy at dinner, stood up, and then passed. No CP, SOB, edema, palps. He is very active and exercises regularly without angina. Exam with RRR, no murmurs, no edema.
Tele: SR, frequent PVC's. EKG: SR, 1st degree AVB, LBBB.
Syncope. So far, from cardiac perspective, we see 1st degree AVB, LBBB, frequent PVC's. Will start with echo to evaluate for structural heart disease. If work up is unremarkable, we will arrange for 2 week outpatient monitor and office follow up.
Will discuss lexiscan nuclear stress (given LBBB) as outpatient.
He is also undergoing neuro eval with brain MRI.
Continue Plavix/statin for prior CVA.
Original Note:
Consultation
Consultation Request
Date/Time Consultation Requested: 04/24/25 10:50p
Date/Time Consultation Performed: 04/25/25 8:45a
Requesting Provider: YAW Mayberry
Performing Provider: YAW Álvarez for Dr. Woo
Reason for Consultation: syncope, LBBB
Medical History
-
Chief Complaint: syncoe
History of Present Illness:
Mr. Lizarraga is a 79 yo male with HTN, HLD, CVA 04/2016, h/o prostate cancer s/p prostatectomy 2003, polio, hyperparathyroid, gout and chronic back pain, who presents to the ER for syncope. He was out to dinner with his and friends. He remembers
sitting at the table and suddenly felt lightheaded. He stood up and lightheadedness was worse, he them remembers waking up on the ground. His states she and her friend helped lower him to the ground so he didn't hit his head. He denies any
other prodrome. He is admitted to the hospitalist service and we are consulted for syncope and presumed new LBBB on EKG. He denies any other cardiac symtoms currently.
Past Medical History
Past Medical History: Other (as above)
Past Surgical History: Other (as above)
Social History
Tobacco: Non-Smoker
Alcohol: Occasional
Personal:
Living: With Family
Employment: Retired
Family History
Family History: CAD (mother had CABG x 3 in her early 70s, had PPM and age 92)
Allergies / Home Medications
Allergy/AdvReac Type Severity Reaction Status Date / Time
No Known Allergies Allergy Verified 04/24/25 19:42
�Medication �Instructions �Recorded �Confirmed �Type
allopurinol 300 mg tablet 300 mg PO DAILY Gout 12/05/20 04/24/25 History
atorvastatin 20 mg tablet 20 mg PO DAILY High Cholesterol 12/05/20 04/24/25 History
clopidogrel 75 mg tablet 75 mg PO DAILY Blood Clot 12/05/20 04/24/25 History
Prevention/Tx
metoprolol tartrate 100 mg tablet 100 mg PO DAILY Blood Pressure 12/05/20 04/24/25 History
alendronate 70 mg tablet 70 mg PO MO@0800 Cancer 04/24/25 04/24/25 History
hydrochlorothiazide 12.5 mg tablet 12.5 mg PO DAILY Blood Pressure 04/24/25 04/24/25 History
lisinopril 40 mg tablet 20 mg PO BID Blood Pressure 04/24/25 04/24/25 History
omega 7-oik-kwf-fish oil 1,200 mg 2 cap PO QPM Supplement 04/24/25 04/24/25 History
(144 mg-216 mg) capsule (Fish Oil)
therapeutic multivitamin 1 tab PO QPM Supplement 04/24/25 04/24/25 History
Review of Systems
-
History Source: Patient
All other systems: Negative unless noted
Physical Exam
Vital Signs
Temp Pulse Resp BP Pulse Ox
97.9 F 69 18 153/88 98
04/25/25 08:19 04/25/25 08:19 04/25/25 08:19 04/25/25 08:19 04/25/25 08:41
Lab Results
04/25/25 06:28
04/25/25 06:28
Troponin I < 0.012 ng/ml 04/24/25 20:45
Physical Exam
General: Well Developed, Well Nourished and No Apparent Distress
HEENT: Normocephalic, Anicteric and Moist Mucous Membranes
Respiratory: Clear and Non Labored Respirations
Cardiac: S1/S2, Regular Rhythm and Other (tele with PVCs, couplets and bigeminy)
Breast: Deferred by me
GI: Soft, Non Tender, Non Distended and Normal Bowel Sounds
Rectal: Deferred by Provider
Genito-urinary: No Costovertebral Tender
Musculoskeletal: No Clubbing, No Cyanosis and No Edema
Skin: Warm and Dry
Neuro: AO x 3
Hematologic/Lymphatic: No Lymphadenopathy
Psych: Calm
Impression / Plan
-
Syncope - acute last night.
- had lightheadedness prior to syncope.
- no further lightheadedness or syncope.
- EKG with SR, new LBBB.
- tele with PVCs, couplets and bigeminy.
- check echo today.
- will need outpatient monitoring coordinator for 14 days, our office will contact him to set this up.
- f/u office visit after monitor completed, will also check an outpatient stress test.
- had carotid u/s this am, plans for brain MRI today as well.
CVA - evidence of multiple nonacute lacunar infarcts of the cerebellar and cerebral hemispheres on brain MRI 04/2016.
- on chronic Plavix.
- neurology consulted.
- awaiting brain MRI.
HTN - continue medical therapy.
- will change Lopressor to Toprol 100mg daily.
HLD - well controlled on Lipitor 20mg daily.
- LDL 50.
Data Reviewed
-
EKG: Tracing Personally Visualized and interpreted (SR with 1st degree AVB, LBBB, PVCs)
CT Scan: Report Reviewed by me (head: no abnormality)
MRI: Report Reviewed by me (brain 04/2016: Evidence of multiple nonacute lacunar infarcts of the cerebellar and cerebral hemispheres.)
Labs: Labs Reviewed by me
--- NOTE | 2025-04-25 13:23 | W.PN.HOSP.TC ---
Today's Communication/Plan
-
DC after ECHO
Assessment / Plan
Assessment / Plan
#Syncope
#New LBBB
- Syncope happened in seated position. Doubt orthostatic playing a role.
- Nonfocal neurologically and MRI of the brain is negative for acute stroke. Appreciate neurology input.
- A very short episode of SVT noted on the telemetry today. Rule out cardiac etiology. Await echocardiogram. Would need 2-week cardiac rehab nurse as an outpatient.
- He is on BB already
#HTN�benign
Continue metoprolol tartrate 100 mg daily, lisinopril 20 mg twice daily with hold parameters hold HCTZ
#HLD
Continue atorvastatin 20 mg daily, fish oil
#Gout
Allopurinol 300 mg daily
#Prostatectomy secondary to prostate cancer 2004
#Chronic osteoarthritis lower lumbar back
Patient on alendronate 70 mg Mondays
DVT prophylaxis
SCDs
DC home when okay from cardiology standpoint.
Full code
Anticipated Discharge: Today
Subjective/Interval History
-
Date of Service: April 25, 2025
No syncope since admission.
Voices no specific complaints.
He states that the episode of loss of consciousness happened when he was sitting. He normally gets quite lightheaded when he gets up from seated position suddenly better with
It goes away.
Denies any chest pain, palpitations or shortness of breath.
No nausea vomiting
Objective Data
-
Labs:
Laboratory Results
04/25/25
06:28
WBC 11.1 H
Hgb 14.0
Hct 40.2
Plt Count 173
Sodium 139
Potassium 4.8
Chloride 108 H
Carbon Dioxide 26
BUN 22 H
Creatinine 1.0
Glucose 103 H
Calcium 9.9
Total Bilirubin 1.0
AST 31
ALT 29
Alkaline Phosphatase 68
Vital Signs:
Vital Signs
Temp Pulse Resp BP Pulse Ox
98.1 F 62 18 160/72 100
04/25/25 12:42 04/25/25 12:42 04/25/25 12:42 04/25/25 12:42 04/25/25 12:42
I&O
04/24/25 04/25/25 04/26/25
06:59 06:59 06:59
Intake Total 480 / 480
Balance 480 / 480
Physical Exam
-
General: Comfortable
Respiratory: Clear to Auscultation and Non Labored Respirations; Negative Accessory Resp Muscle Use
Cardiac: Regular Rhythm and S1/S2; Negative Tachycardic
GI: Soft
Neuro: AO x 3 and No Motor Deficits
Psych: Calm; Negative Confused
Data Reviewed
-
Labs: Labs Reviewed by me
--- NOTE | 2025-04-25 14:41 | W.DCSUMMARY ---
Discharge Summary
Discharge Data
Date of Admission: 04/24/25
Date of Discharge: 04/25/25
-
Pending Results: No
Hospital Course
Primary diagnosis:
Syncope
Secondary diagnosis:
Benign hypertension
Hyperlipidemia
Gout
History of prostate cancer
Osteoarthritis of the lumbar spine
Hospital course:
79-year-old gentleman presented with syncope. It happened at dinner he was feeling dizzy at the end then stood up and passed out. No associated cardiac symptoms. Nonfocal neurologically. He had an EKG which showed sinus rhythm with a
first-degree AV block and a left bundle branch block which seemed new. He had a neuro cardiology workup. MRI of the brain was negative for stroke. Echo showed normal EF with mild to moderate MR. Unclear etiology. His orthostasis is also not
consistently showing drop in blood pressure. While on telemetry he had a very brief run of SVT. Cardiology recommended an outpatient 2-week monitor which they are going to arrange. He was in meantime advised to change his metoprolol tartrate to
metoprolol succinate. He was resumed on all his other medications and was discharged home.
Consultants on board:
Urology-Fredis Browning
Cardiology-Peng Tapia
Discharge Plan
-
Patient Disposition: Home (Routine Discharge)
Discharge Diagnosis/Procedures: syncope
Diet: Low Cholesterol
Activity: As tolerated
Driving Restrictions: Not until seen by your Dr
Bathing Restrictions: None
Referrals:
Peng Woo MD [Active, Cardiology] - in one to two weeks
Isacc Hickman MD [Family Provider, Internal Medicine] - in less than 1 week
Prescriptions:
New
metoprolol succinate [Toprol XL] 100 mg tablet extended release 24 hr
100 mg PO DAILY Qty: 30 0RF
Rx Instructions:
Switch from your Metoprolol tartrate for extended release of medication
Continued
atorvastatin 20 MG tablet
20 mg PO DAILY
clopidogrel 75 MG tablet
75 mg PO DAILY
allopurinol 300 MG tablet
300 mg PO DAILY
alendronate 70 mg Tablet
70 mg PO MO@0800
therapeutic multivitamin Tablet
1 tab PO QPM
lisinopril 40 mg Tablet
20 mg PO BID
hydrochlorothiazide 12.5 mg Tablet
12.5 mg PO DAILY
omega 2-pag-gtt-fish oil [Fish Oil] 1,200 (144-216) mg Capsule
2 cap PO QPM
Discontinued
metoprolol tartrate 100 MG tablet
100 mg PO DAILY
Discharge Orders:
Discharge Patient (As Directed); Ordered 04/25/25
Ordered By: Santo Truong
Discharge Date and Time
Print Language: GEORGIAN
--- NOTE | 2025-04-25 16:37 | CM ---
Met with patient to obtain information for assessment. Patient stated that he lives with his in a two story home with one step to enter. He is independent with all ADLs, personal care, dressing and bathing. 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
cook and clean. He has a walker, a cane and a transport chair from previous surgeries. He has had VN in the past through [facility] and [facility]. He has not been to a SNF.
Patient has a prescription plan and uses, [facility] in [place] for all of her medications.
Patient's PCP is, Sanchez Hickman.
Plan: Case management will continue to follow and assist with discharge planning. Home.
== END 2025-04-25 16:03 | disposition home or self-care (01) ==
LOC: 4 EAST ACU 23:13
PROVIDERS: Clinical Nurse Specialist Family Health; Physician Assistant; ADMITTING PHYSICIAN Hospitalist; ATTENDING PHYSICIAN Internal Medicine; CONSULT PHYSICIAN Psychiatry & Neurology Neurology; EMERGENCY PHYSICIAN Student in an Organized Health Care Education/Training Program; FAMILY PHYSICIAN Internal Medicine; OTHER PHYSICIAN Internal Medicine
DX: R55 Syncope and collapse (principal); I10 Essential (primary) hypertension; E78.5 Hyperlipidemia, unspecified; I44.7 Left bundle-branch block, unspecified; M47.816 Spondylosis without myelopathy or radiculopathy, lumbar region; I44.0 Atrioventricular block, first degree; I47.10 Supraventricular tachycardia, unspecified; I65.21 Occlusion and stenosis of right carotid artery; G89.29 Other chronic pain; M10.9 Gout, unspecified; Z79.02 Long term (current) use of antithrombotics/antiplatelets; Z79.82 Long term (current) use of aspirin; Z79.899 Other long term (current) drug therapy; Z85.46 Personal history of malignant neoplasm of prostate; Z86.73 Personal history of transient ischemic attack (TIA), and cerebral infarction without residual deficits
CPT/HCPCS: 70450; 70551; 80053; 80061; 83735; 84484; 85025; 93005; 93306; 93880; 97162; 99284; G0378

== ENCOUNTER 2025-05-19 08:54 | Emergency (ER) | payer MEDICARE, OTHER, SELFPAY ==
[2025-05-19 09:19] LABS: Hematocrit 45.6 % (39.0-52.0); Hemoglobin 15.8 g/dL (13.0-18.0); Mean Corp Hgb Conc. 34.6 g/dL (33.0-37.0); Mean Corpuscular Volume 101.3 fL (80.0-94.0); Nucleated Red Blood Cells % 0 % (-); Platelet Count 188 10^3/uL (130-400); Red Cell Dist. Width 13.5 % (11.5-14.5)
[2025-05-19 09:34] VITALS: BP 151/76
[2025-05-19 09:36] VITALS: BP 151/76
[2025-05-19 09:40] LABS: ALT (SGPT) 34 U/L (0-50); AST (SGOT) 32 U/L (17-59); Albumin 4.3 g/dl (3.5-5.0); Alkaline Phosphatase 72 U/L (38-126); Blood Urea Nitrogen 35 mg/dl (9-20); Calcium 10.0 mg/dl (8.4-10.2); Carbon Dioxide 26 mmol/L (22-30); Chloride 111 mmol/L (98-107); Glucose 125 mg/dl (70-99); Lipase 107 U/L (23-300); Potassium 5.2 mmol/L (3.5-5.1); Sodium 142 mmol/L (135-145); Total Protein 6.7 g/dl (6.3-8.2); eGFR > 60.00
[2025-05-19 09:43] LABS: Troponin I < 0.012 ng/ml
--- NOTE | 2025-05-19 10:13 | ED.GENMED ---
History of Present Illness
General
Chief Complaint: Dizziness
Source: patient
Exam Limitations: none
Time Seen by Provider: 05/19/25 09:37
History of Present Illness
History of Present Illness:
79-year-old male presents for lightheadedness fatigue and palpitations. He was admitted about a month ago for syncope. He was found to have a left bundle branch block at that time. As an outpatient he completed a Holter monitor and was told he
had some tacky arrhythmias. He is due for stress test in 2 days. He presents for increased lightheadedness and fatigue. The symptoms got worse this morning and presented here for evaluation. There was no associated chest pain. He states since
waiting in the waiting room he feels improved. He denies rash or fever. He does note chills and headache overnight. He is on metoprolol. No other complaints at this time
Past History
Past History
ED Past Medical History: HTN
ED Past Surgical History: Orthopedic (Right ankle replacement), Tonsilectomy, Urological and Other (Sinus surgery, prostatectomy)
Social History
Personal:
Living: with family
Employment: Retired
Phy Exam
Physical Exam
Physical Exam:
General: Well-appearing male no acute respiratory distress
HEENT normocephalic atraumatic
Heart: Mostly regular with premature beats no audible murmurs
Lungs: Clear no wheeze
Abdomen is soft nontender
Extremities: No cyanosis
Course
Orders/Labs/Results
Orders:
Orders
05/19/25 09:03
EKG [Electrocardiogram (*1)] Urgent
Reason for Study: Vertigo / Dizzy
EKG- Treatment ONCE
05/19/25 09:12
Complete Blood Count/With Diff Urgent
Comprehensive Metabolic Panel Urgent
Lipase Urgent
Lyme Progressive Urgent
Comment: ADD ON
Troponin I Urgent
05/19/25 10:03
Add On- LAB Urgent
Tests Added?: lyme progressive
05/19/25 10:12
COVID-19 Antigen Urgent
Source: Nasal Swab
Abnormal Lab Results
05/19/25
09:12
WBC 12.6 H 10^3/uL
(4.8-10.8)
RBC 4.50 L 10^6/uL
(4.70-6.10)
MCV 101.3 H fL
(80.0-94.0)
MCH 35.1 H pg
(27.0-31.0)
MPV 11.4 H fL
(7.4-10.4)
Abs Immat Gran (auto) 0.1 H 10^3/uL
(0-0.05)
Absolute Neuts (auto) 9.2 H 10^3/uL
(1.4-6.5)
Absolute Monos (auto) 1.2 H 10^3/uL
(0.1-0.6)
Immature Gran % 0.6 H %
(0-0.5)
Lymphocytes % 13.9 L %
(20.5-51.1)
Monocytes % 9.4 H %
(1.7-9.3)
Potassium 5.2 H mmol/L
(3.5-5.1)
Chloride 111 H mmol/L
(98-107)
BUN 35 H mg/dl
(9-20)
Glucose 125 H mg/dl
(70-99)
05/19/25 09:12
05/19/25 09:12
Vital Signs
Initial and Last Documented VS:
Initial Vital Signs
Temp Pulse Resp Pulse Ox
98.2 F 66 18 99
05/19/25 08:59 05/19/25 08:59 05/19/25 08:59 05/19/25 08:59
Last Documented Vital Signs
Temp Pulse Resp BP Pulse Ox
98.2 F 63 19 151/76 99
05/19/25 08:59 05/19/25 09:36 05/19/25 09:36 05/19/25 09:36 05/19/25 10:15
MDM/Problems Addressed
Differential Diagnosis Includes:
Patient with palpitations fatigue and lightheadedness. Recent workup as noted above. Feeling better at the time my exam. Labs will be checked. EKG shows sinus rhythm with frequent PVCs. At times on the monitor it looks like he is in a trigeminy
pattern with his PVCs. Will discuss with cardiology as well
*Pulse Oximetry
SaO2: 99
Oxygen Mode of Delivery: Room air
Patient hypoxic: no
*Critical Care Note
Total Time (30-74mins, 75-104mins- exclusive of procedures): Not Applicable
Update Note
Update Note:
Discussed with cardiology. No concerning findings today. Patient was advised by cardiology to increase overall succinate to 150 mg daily instead of the 100 mg daily. She was also able to bump up the stress test appointment for tomorrow at 1140.
ED Attending Note
-
Portions of this chart may have been created with voice recognition software.� Occasional wrong word or��sound alike� substitutions may have occurred due to the inherent limitations of voice recognition software.
Discharge Plan
Departure
Patient Disposition: Home (Routine Discharge)
Date of Disposition: 05/19/25
Time of Disposition: 11:49
Patient with high blood pressure during this ER visit?: No
Discharge Problem:
Palpitations
Instructions: Dizziness
Prescriptions:
No Action
atorvastatin 20 MG tablet
20 mg PO DAILY
clopidogrel 75 MG tablet
75 mg PO DAILY
allopurinol 300 MG tablet
300 mg PO DAILY
alendronate 70 mg Tablet
70 mg PO MO@0800
therapeutic multivitamin Tablet
1 tab PO QPM
lisinopril 40 mg Tablet
20 mg PO BID
hydrochlorothiazide 12.5 mg Tablet
12.5 mg PO DAILY
omega 9-jpe-ity-fish oil [Fish Oil] 1,200 (144-216) mg Capsule
2 cap PO QPM
metoprolol succinate [Toprol XL] 100 mg tablet extended release 24 hr
100 mg PO DAILY Qty: 30 0RF
Rx Instructions:
Switch from your Metoprolol tartrate for extended release of medication
Referrals:
Isacc Hickman MD [Family Provider, Internal Medicine]
Activity Restrictions/Additional Instructions:
Increase your metoprolol succinate to 150 mg daily instead of 100 mg daily. You have an appointment tomorrow at 1140 in the morning here in the hospital for stress test. Please return if worse otherwise
Interventions
Interventions:
*Risk Screen - Suicide Last Done: 05/19/25 08:59
*General Assessment Last Done: 05/19/25 08:59
*ED COVID-19 Vaccine History Last Done: 05/19/25 08:59
ED- Neurological Assessment Last Done: 05/19/25 09:53
Discharge Date and Time
Print Language: HONG KONGER
[2025-05-19 10:35] LABS: COVID-19 Antigen Negative (Negative)
[2025-05-21 11:42] LABS: Lyme Antibody Screen, EIA Negative (Negative)
== END 2025-05-19 11:56 | disposition home or self-care (01) ==
LOC: EMR 08:54
PROVIDERS: Physician Assistant; EMERGENCY PHYSICIAN Student in an Organized Health Care Education/Training Program; FAMILY PHYSICIAN Internal Medicine
DX: R00.2 Palpitations (principal); R42 Dizziness and giddiness; R53.83 Other fatigue; R51.9 Headache, unspecified; R68.83 Chills (without fever); Z11.52 Encounter for screening for COVID-19; I44.7 Left bundle-branch block, unspecified; I10 Essential (primary) hypertension; Z96.661 Presence of right artificial ankle joint; Z90.79 Acquired absence of other genital organ(s)
CPT/HCPCS: 99283; 80053; 83690; 84484; 85025; 86618; 87811; 93005

== ENCOUNTER → 2025-05-20 11:13 | Outpatient (REF) | payer MEDICARE, OTHER, SELFPAY | LOC: RCS 11:13 | PROVIDERS: ATTENDING PHYSICIAN Internal Medicine; FAMILY PHYSICIAN Internal Medicine | DX: R55 Syncope and collapse (principal); I47.20 Ventricular tachycardia, unspecified; I47.10 Supraventricular tachycardia, unspecified; I10 Essential (primary) hypertension | CPT/HCPCS: 78452; 93017; A9500 ==

== ENCOUNTER 2025-06-09 07:53 | Day surgery (SDC) | payer MEDICARE, OTHER, SELFPAY ==
[2025-06-09] VITALS (20 sets, daily range): BP systolic 93–140; BP diastolic 57–79; BMI 29.1
--- NOTE | 2025-06-09 08:53 | W.ICD.CONTRA ---
Post ICD/KAPOK MACHINE OPERATOR-D
-
History of MN?: No
LV Function
Left ventricular function study result?: Ejection Fraction >/= 40%
ACEI/ARB/ARNI
Patient already on ACEI/ARB/ARNI: Yes
Beta-Deya
Patient already on Beta Deya: Yes
--- NOTE | 2025-06-09 11:18 | ITS.CL.ICD ---
Consulting Hr Professional - ICD
Implantable Cardioverter Defibrillator
Procedure Report:
Dual Chamber Implantable Cardioverter Defibrillator Placement:
Mr. Lizarraga is a very pleasant 79 yr old gentleman with h/o syncope, ventricular tachycardia, and conduction disease with LBBB and 1st degree AV block and symptomatic bradycardia, with NYHA class III symptoms, LVEF of 55% is recommended a dual chamber
ICD placement
Indications: Sick sinus syndrome with ventricular tachycardia and syncope
Date of the Procedure:
06/09/2025
Pre-Operative Diagnosis: Sick sinus syndrome and ventricular tachycardia.
Post-Operative Diagnosis: Sick sinus syndrome and ventricular tachycardia.
Procedure Performed: DUAL CHAMBER IMPLANTABLE CARDIOVERTER DEFIBRILLATOR IMPLANTATION
Performing Physician:
Aayush Damon MD
Anesthesia:
See anesthesia report
Detailed Description of the Procedure:
The patient was identified using hospital identification and informed consent obtained for the procedure. The risks were explained including, but not limited to: Bleeding, infection, arrhythmia, stroke, vascular/cardiac/lung puncture, surgery,
pacemaker dependency/device malfunction. All questions were answered.
The patient was brought to the electrophysiology laboratory in stable condition in fasting state. Continuous electrocardiographic and hemodynamic monitoring was initiated. The initial rhythm was sinus bradycardia.
The procedure site was meticulously prepared with surgical scrub and allowed to dry with no pooling. Sterile draping was applied to cover the procedure site. The image intensifier was draped with sterile bag and positioned over the patient.
The left infra-clavicular region was prepped and draped in the usual sterile fashion. Local anesthesia was administered subcutaneously using 1% lidocaine / Bupivacaine. The left cephalic vein cut-down was performed with an incision at the
delto-pectoral groove, and vascular sheaths were introduced for lead access. These were advanced into the right ventricle and the right atrium.
The right ventricular lead was secured in position with an active fixation technique at the apical septal location.
The RA lead was attached in the right atrial appendage with active fixation.
There was excellent sensing, pacing, and impedance from the leads, with no diaphragmatic stimulation at 10 V output.�Bovie cautery, antibiotics, and fluoroscopy were used.
The sheath was withdrawn, and the thresholds remained acceptable. A pursestring suture was placed at the entry site of leads using 2-0 Vicryl. The lead was secured in position at the venous entry site with 2-0 Ethibond. A pocket was fashioned
contiguous to the incision. The electrode terminals were connected to the pulse generator, which was placed into the pocket. The wound was irrigated thoroughly with antibiotic solution and closed in 3 layers using 2-0 VLoc sutures followed by 2
layers of 4-0 Monocryl sutures. Steri-Strips and a bandage were applied externally.�
Procedure End:
The procedure was tolerated well. A bandage was applied to the incision area.
Estimated Blood loss:
5 cc
Fluoro time:
1.6min / 4.9 mGy
Specimens Removed:
No cultures and no specimens were obtained. No intraoperative pathology was identified.
Urine output:
None
Packs / Drains/ Tubes:
None
Instrument / Sponge Count Correct:
Yes
Complications of the Procedure:
None
Condition of Patient at Time of Transfer:
Hemodynamically stable with no neurological or vascular compromise.
Device information:�
Generator: Pro V&V; Model: [id number]; Serial # [id number]�
Atrial Lead: Pro V&V; Model: 5076-52; Serial # [id number]
Measured data in the right atrium was sensing of 1.1 mV, impedance of 475 ohms and threshold of 1.0 V at 0.4ms�
RV Lead: MedAntidot; Model: 6935M-62; Serial # [id number]
Measured data in the RV lead was sensing of 8.4mV, impedance of 589 ohms and threshold of 0.75 V at 0.4ms�
HVB impedance: 80
PROGRAMMING PARAMETERS:�
Diony parameter settings were AAIR <=>DDDR 60-130 bpm. �
��������������� Mode switch: On
��������������� Paced AV delay: 130 ms
��������������� Sensed AV delay: 100 ms
��������������� Rate Adaptive A-V Interval: Off
Output parameters:
������������������������������� Amplitude (V)������������������� Pulse Width (ms)������������� Sensitivity (mV)
��������������� RA: ������� 3.5 ������������������������ ��������������� 0.4������������������������� ��������������� 0.3
��������������� RV:�������� 3.5������������������������� ��������������� 0.4������������������������� ��������������� 0.3
Tachy parameter settings:
��������������� SVT discrimination: On
��������������� AF/AFl: On
��������������� SVT limit: 260 msec
��������������� VT zone:
������������������������������� Monitor zone: 150 - 168 bpm --> Monitor
������������������������������� Slow VT: 168-188 bpm --> aggressive iATP then Shock
������������������������������� Fast VT: 188-200 ---> ATP then shcok
������������������������������� VF: >200 bpm --> Shock x6 (ATP before and during)
�
Summary:
Successful implantation of MRI compatible dual chamber Med[employer]onic implantable Cardioverter Defibrillator.�
Results/Recommendations:
-Please follow up CXR�
1. Please provide patient with adequate pain control�
Instructions to be given to patient:�
- Please follow up with [facility] at [address] [place] [address] ([phone]) to get your wound checked within 14 days of your discharge.
- Do not soak incision site until after it is evaluated at cardiology clinic. OK to showers followed by dab dry the area. No baths or swimming until then. Sponge baths are OK.�
- Allow 'steri strips' to fall off on their own�
- Do not lift left elbow above shoulder, particularly with sudden jerking movements, for 1 month�
- Do not lift anything weighing more than 5 pounds with the left arm for 1 month�
- If you notice any fevers, shortness of breath, lightheadedness, chest pain, or worsening swelling in the wound site, please contact the arrhythmia clinic, contact your ice cream mixer, or present to the hospital for evaluation.�
Aayush Damon MD
Electrophysiology
--- NOTE | 2025-06-09 13:50 | W.PN.UPDATE ---
Update Note
Progress Note Update
Pt seen post DC ICD implant. Left ACW w/aquacel dressing CDI, no ht/bleeding. Post EKG APaced 60 w/LBBB as before, no acute changes. Post CXR w/stable lead position, no pneumothorax. Continue current meds as before. Activity limitations reviewed
w/pt. Incision check 1 week at [facility] as scheduled. Home today after 2nd dose abx.
[2025-06-09] MEDS: ANCEF 5 IV (15:30)
== END 2025-06-09 16:01 | disposition home or self-care (01) ==
LOC: CATH 07:53
PROVIDERS: ATTENDING PHYSICIAN Internal Medicine Cardiovascular Disease; FAMILY PHYSICIAN Internal Medicine
DX: I47.20 Ventricular tachycardia, unspecified (principal); R55 Syncope and collapse; I44.0 Atrioventricular block, first degree; I47.10 Supraventricular tachycardia, unspecified; Z79.02 Long term (current) use of antithrombotics/antiplatelets; Z79.899 Other long term (current) drug therapy
CPT/HCPCS: 33249; 71045; 93005; C1721; C1777; C1892; C1898

== ENCOUNTER → 2025-08-14 06:54 | Outpatient (REF) | payer MEDICARE, OTHER, SELFPAY ==
[2025-08-14 08:14] LABS: ALT (SGPT) 47 U/L (0-50); AST (SGOT) 37 U/L (17-59); Albumin 4.0 g/dl (3.5-5.0); Alkaline Phosphatase 86 U/L (38-126); Blood Urea Nitrogen 17 mg/dl (9-20); Calcium 9.9 mg/dl (8.4-10.2); Carbon Dioxide 29 mmol/L (22-30); Chloride 106 mmol/L (98-107); Glucose 111 mg/dl (70-99); Potassium 4.3 mmol/L (3.5-5.1); Sodium 140 mmol/L (135-145); Total Protein 6.3 g/dl (6.3-8.2); eGFR > 60.00
[2025-08-14 08:31] LABS: Vitamin D, 25-OH*** 57.0 ng/mL (30-80)
[2025-08-14 08:45] LABS: TSH 3.69 uIU/ml (0.47-4.68)
== END ==
LOC: REG 06:54
PROVIDERS: ATTENDING PHYSICIAN Internal Medicine Endocrinology, Diabetes & Metabolism; FAMILY PHYSICIAN Internal Medicine
DX: M81.0 Age-related osteoporosis without current pathological fracture (principal); E34.9 Endocrine disorder, unspecified; M79.10 Myalgia, unspecified site; E55.9 Vitamin D deficiency, unspecified
CPT/HCPCS: 36415; 80053; 82306; 82330; 83970; 84443

== ENCOUNTER → 2025-09-22 10:55 | Outpatient (REF) | payer MEDICARE, OTHER, SELFPAY | LOC: RAD 10:55 | PROVIDERS: ATTENDING PHYSICIAN Internal Medicine Endocrinology, Diabetes & Metabolism; FAMILY PHYSICIAN Internal Medicine | DX: M81.0 Age-related osteoporosis without current pathological fracture (principal) | CPT/HCPCS: 77080; 77081 ==